=== PATIENT | female | born 1995 | race Caucasian/White ===

== ENCOUNTER 2016-10-16 18:14 | Emergency (ER) | payer SELFPAY ==
[~2016-10-16] VITALS: Ht 162.6 cm; Wt 63.5 kg
[2016-10-16 18:14] VITALS: BP 131/75
[2016-10-16] MEDS ORDERED: ACETAMINOPHEN ES 500 MG TABLET ONE (19:03)
[2016-10-16] MEDS: ACETAMINOPHEN ES 500 MG TABLET PO ONE (19:08)
== END 2016-10-16 19:11 | disposition home or self-care (01) ==
LOC: ER 18:19
DX: L03.311 Cellulitis of abdominal wall (principal)
CPT/HCPCS: A4606; Z7610

== ENCOUNTER 2017-10-18 11:00 | Emergency (ER) | payer SELFPAY ==
[~2017-10-18] VITALS: Ht 162.6 cm; Wt 61.2 kg
[2017-10-18 11:00] VITALS: BP 107/61
== END 2017-10-18 11:38 | disposition home or self-care (01) ==
LOC: ER 11:07
DX: R51 Headache (principal); J32.9 Chronic sinusitis, unspecified; J06.9 Acute upper respiratory infection, unspecified; F17.200 Nicotine dependence, unspecified, uncomplicated
CPT/HCPCS: 99282; 99406; A4606; Z7610